=== PATIENT | male | born 1965 ===

== ENCOUNTER 2021-04-25 22:46 | Emergency (ER) | payer BC ==
[2021-04-25] MEDS ORDERED: Enoxaparin 100 MG/1 ML Syringe SUBCUT ONE (23:10)
--- NOTE | 2021-04-25 23:15 | EDM.PDOC ---
ED HPI GENERAL MEDICAL PROBLEM - General Chief Complaint: Lower Extremity Injury/Pain Stated Complaint: left leg pain Time Seen by Provider: 04/25/21 22:53 Source of Information: Reports: Patient - History of Present Illness INITIAL COMMENTS - FREE TEXT/NARRATIVE: Darin is a 55 y/o male who presents to the ER with complaints of left thigh pain. The pain started about 2 days ago. He denies any recent injury but did fall about month ago. He describes the pain in the anterior left thigh region and "achy". It is better when he walks, but the leg gets "stiff". He does have a history of diabetic neuropathy, bu that has gotten better since he has been managing his sugars. [facility] and will be returning to his home in [place], [place] on Friday. Denies previous hx of bl ood clots. Left Thigh Pain Score (Numeric/FACES): 6 - Related Data Allergies Allergy/AdvReac Type Severity Reaction Status Date / Time No Known Allergies Allergy Verified 04/25/21 22:48 Past Medical History Cardiovascular History: Reports: Hypertension Endocrine/Metabolic History: Reports: Diabetes, Type II Social & Family History - Tobacco Use Tobacco Use Status *Q: Former Tobacco User Used Tobacco, but Quit: Yes Month/Year Tobacco Last Used: 09/2014 - Caffeine Use Caffeine Use: Reports: Soda - Recreational Drug Use Recreational Drug Use: No Review of Systems - Review of Systems Review Of Systems: See Below Constitutional: Reports: No Symptoms Eyes: Reports: No Symptoms Ears: Reports: No Symptoms Nose: Reports: No Symptoms Mouth/Throat: Reports: No Symptoms Respiratory: Reports: No Symptoms Cardiovascular: Reports: No Symptoms GI/Abdominal: Reports: No Symptoms Genitourinary: Reports: No Symptoms Musculoskeletal: Reports: Leg Pain (left thigh region) Skin: Reports: No Symptoms Neurological: Reports: No Symptoms Psychiatric: Reports: No Symptoms ED EXAM, GENERAL - Physical Exam Exam: See Below General Appearance: Alert, WD/WN, No Apparent Distress (Adult male, appears older than stated age.) Ears: Hearing Grossly Normal Throat/Mouth: Normal Voice Head: Atraumatic, Normocephalic Neck: Normal Inspection Respiratory/Chest: Chest Non-Tender GI/Abdominal: Soft (Male) Exam: Deferred Rectal (Males) Exam: Deferred Back Exam: Normal Inspection Extremities: Normal Range of Motion, No Pedal Edema, Other (No pain palpated in the left hip or knee region, no effusion appreciated in the knee. No erythma noted in the thigh region, large varicose vein is noted in the inner left thigh, but not in the region of the pain.) Course - Vital Signs Text/Narrative:: 0531 The patient was seen by the [employer]. US not available tonight in the ER. He was given Lovenox 100mg SQ and will ahve him return tomorrow for a Venous Doppler study. Advised conservative measures tonight of rest, heat, elevation. Suspect musculoskeletal cause, but will exclude DVT. Written instructions were given and the patient left the ER in stable condition. Last Recorded V/S: Last Vital Signs Temp 36.5 C 04/25/21 22:50 Pulse 95 04/25/21 22:50 Resp 14 04/25/21 22:50 BP 167/95 H 04/25/21 22:50 Pulse Ox 98 04/25/21 22:50 - Orders/Labs/Meds Orders: Active Orders 24 hr Category Date Time Status Enoxaparin [Lovenox] Med 04/25/21 23:10 Once 100 mg SUBCUT ONETIME ONE Departure - Departure Time of Disposition: 23:10 Disposition: Home, Self-Care 01 Condition: Good Clinical Impression: Left thigh pain, Anticoagulated Varicosities of leg Qualifiers: Varicose vein complication: pain Laterality: left Qualified Code(s): I83.812 - Varicose veins of left lower extremity with pain - Discharge Information Instructions: Varicose Veins Additional Instructions: -You were given a dose of Lovenox to protect you if you do have a blood clot. -Scheduling will call you tomorrow for an US time. Please check your phone often for messages or call the hospital to check on the time. [facility] -Rest as needed and elevate your legs -Apply warm moist heat for comfort as needed -Return to the ER as needed -Make sure you follow up with your PCP when you return to [place] Sepsis Event Note (ED) - Evaluation Sepsis Screening Result: No Definite Risk - Focused Exam Vital Signs: Vital Signs Temp Pulse Resp BP Pulse Ox 04/25/21 22:50 36.5 C 95 14 167/95 H 98 - Problem List & Annotations (1) Anticoagulated SNOMED Code(s): 724775165, 660419724 Code(s): Z79.01 - SLINGER SEQUINS (CURRENT) USE OF ANTICOAGULANTS Status: Acute Current Visit: Yes Annotation/Comment:: -Lovenox 100mg SQ given tonight in the ER (2) Left thigh pain SNOMED Code(s): 99645895, 429966693 Code(s): M79.652 - PAIN IN LEFT THIGH Status: Acute Current Visit: Yes Annotation/Comment:: -Venous doppler study ordered to be done as outpatient (3) Varicosities of leg SNOMED Code(s): 71043663 Code(s): I83.90 - ASYMPTOMATIC VARICOSE VEINS OF UNSPECIFIED LOWER EXTREMITY Status: Acute Current Visit: Yes Qualifiers: Varicose vein complication: pain Laterality: left Qualified Code(s): I83.812 - Varicose veins of left lower extremity with pain - My Orders Last 24 Hours: My Active Orders 04/25/21 23:10 Enoxaparin [Lovenox] 100 mg SUBCUT ONETIME ONE - Assessment/Plan Last 24 Hours: My Active Orders 04/25/21 23:10 Enoxaparin [Lovenox] 100 mg SUBCUT ONETIME ONE Plan: See below
== END 2021-04-25 23:20 | disposition home or self-care (01) ==
LOC: LL.ED 22:46
DX: I83.812 Varicose veins of left lower extremity with pain (principal); E11.9 Type 2 diabetes mellitus without complications; I10 Essential (primary) hypertension; Z87.891 Personal history of nicotine dependence; Z79.01 Long term (current) use of anticoagulants; Z79.899 Other long term (current) drug therapy
CPT/HCPCS: 96372; 99283; J1650